=== PATIENT | male | born 1980 | race African-American/Black ===

== ENCOUNTER 2019-05-15 05:25 | Emergency (ER) | payer BC ==
[~2019-05-15] VITALS: Ht 170.2 cm; Wt 61.2 kg
[2019-05-15 07:05] LABS: BASOPHILS 0.4 % (0.0-2.0); EOSINOPHILS 4.5 % (0.0-3.0); HEMATOCRIT 40.1 % (42.0-52.0); HEMOGLOBIN 13.7 gm/dL (14.0-18.0); LYMPHOCYTES 3.1 % (24.0-44.0); MCH 30.9 pg (26.0-34.0); MCHC 34.1 g/dL (28.0-37.0); MCV 90.5 fL (80.0-100.0); MONOCYTES 7.1 % (1.0-8.0); PLATELET COUNT 225 thou/uL (150-400); POLYS 84.9 % (36.0-66.0); RBC 4.43 mil/uL (4.50-6.00); RDW 13.4 % (10.5-14.5); WBC 10.6 thou/uL (4.0-11.0)
[2019-05-15 07:13] LABS: ANION GAP 8 mmol/L (7-16); BUN 8 mg/dL (7-18); CHLORIDE 99 mmol/L (98-107); CO2 27 mmol/L (21-32); GLUCOSE 152 mg/dL (74-106); POTASSIUM 3.9 mmol/L (3.5-5.1); SODIUM 134 mmol/L (136-145)
[2019-05-15 07:24] LABS: ALBUMIN 3.3 g/dL (3.4-5.0); DIRECT BILIRUBIN < 0.1 mg/dL (<0.1-0.2); SGOT 61 U/L (15-37); SGPT 66 U/L (30-65); TOTAL BILIRUBIN 0.2 mg/dL (<0.1-1.0); TOTAL PROTEIN 6.8 g/dL (6.4-8.2); TROPONIN-I <0.06 ng/mL (<0.06)
--- NOTE | 2019-05-15 08:52 | EKG ---
[facility] [place] [address] ELECTROCARDIOGRAM REPORT Name: ALICIA MOCK Room #: [facility]..#: [id number] Admission: 05/15/19 Attend Phys: Discharge: Date of : 84 Report #: [id number] THIS REPORT FOR: cc: FAM - No family physician/PCP FAM - Family physician unknown Stephen Earl MD [facility] ~ THIS REPORT FOR: //name// [facility] ED Test Date: 2019-05-15 Test Time: 05:46:53 Pat Name: ALICIA MOCK Department: Room: Gender: M Cashier Payments Received: rufus lópez : 1980 Requested By: Damian Sandhu Order Number: [id number] MD: Stephen Earl Measurements Intervals [place] Rate: 93 P: 77 CT: 134 QRS: 27 QRSD: 94 T: 38 QT: 325 QTc: 405 Interpretive Statements Sinus rhythm ST elev, probable normal early repol pattern Compared to ECG 12/15/2015 19:31:41 No significant change was found Electronically Signed On 05-15-2019 8:51:00 CDT by Stephen Earl [email or web address] <ELECTRONICALLY SIGNED> By: Stephen Earl MD, [facility] 05/15/19 0851 [id number] Stephen Earl MD, [facility] /EPI
[2019-05-15] MEDS ORDERED: MOBIC15 MG PO (09:31)
[2019-05-15 09:59] VITALS: BP 126/57
== END 2019-05-15 10:06 | disposition home or self-care (01) ==
LOC: ER 05:25
PROVIDERS: Emergency Medicine
DX: J06.9 Acute upper respiratory infection, unspecified (principal); I10 Essential (primary) hypertension; F17.210 Nicotine dependence, cigarettes, uncomplicated